=== PATIENT | female | born 1980 | race Caucasian/White ===

== ENCOUNTER 2016-06-29 18:45 | Emergency (ER) ==
[2016-06-29 18:45] VITALS: BMI 41.0
[2016-06-29 18:56] VITALS: BP 132/89; TEMP 98
== END 2016-06-29 19:30 | disposition left against medical advice (07) ==
LOC: ED 18:45
DX: R10.30 Lower abdominal pain, unspecified (principal); R39.9 Unspecified symptoms and signs involving the genitourinary system

== ENCOUNTER 2016-08-25 22:17 | Emergency (ER) ==
[2016-08-25 22:18] VITALS: BMI 41.0
[2016-08-25 22:27] VITALS: BP 134/79; TEMP 96.7
[2016-08-25] MEDS: TORADOL IM STA (22:38)
--- NOTE | 2016-08-25 22:39 | ED.PDOC ---
General ED Provider: Dr. JOSE JUAN BROWER Chief Complaint: Wrist Pain/Injury Stated Complaint: States that she pushed with her right hand to get up when she twited her right wrist about 6 hours ago. Took Ibupfuren but still has pain. Still has good range of motion. Time Seen by Physician: 22:37 Mode of Arrival: Walk-In Information Source: Patient Exam Limitations: No limitations Primary Care Provider: SHEA PA Nursing and Triage Documentation Reviewed and Agree: Yes Musculoskeletal Complaint Exam - Upper Extremity Complaint/Exam Location of Pain: Reports: Right, Wrist Mechanism of Injury: Reports: Trauma Onset/Duration: 6 hour Symptoms Are: Still present Timing: Constant Initial Severity: Severe Current Severity: Moderate Location: Reports: Diffuse Character: Reports: Aching, Throbbing Aggravating: Reports: Movement Alleviating: Reports: None Related History: Reports: Similar episode DVT Risk Factors: Reports: None Septic Arthritis Risk Factors: Reports: None Upper Extremity Findings: Present: Limited range of motion (at the wrist ) NV Bundle Intact Distal to Injury: No Compartment Syndrome Risk Factors: Present: Pain Differential Diagnoses: Strain, Sprain Review of Systems - Review Of Systems Constitutional: Reports: No symptoms Musculoskeletal: Reports: Joint pain All Other Systems: Reviewed and Negative Past Medical History - Past Medical History Previously Healthy: No Endocrine: Reports: DM 2 Cardiovascular: Reports: None Respiratory: Reports: None Hematological: Reports: None Gastrointestinal: Reports: Other (constipation) Genitourinary: Reports: None Neuro/Psych: Reports: Anxiety, Depression Musculoskeletal: Reports: Arthritis, Joint Pain (DJD-states unable to get neurology or neurosurgical referral "not bad enough"which conforms with old MR, states recommended heel surgery but has 4 small children and cannot take off) Cancer: Reports: None Last Menstrual Period: 07/20/16 Other Pertinent Past Medical History: Arthritis, heel spurs - Surgical History General Surgical History: Reports: Tubal ligation (TUBAL 2014), , Appendectomy - Family History Family History: Reports: None - Social History Smoking Status: Current every day smoker, Light tobacco smoker Hx Substance Use: No Alcohol Screening: None - Immunizations Tetanus Shot up to Date: Yes Physical Exam - Physical Exam Appearance: Obese Pain Distress: Moderate Neck: Supple Respiratory: Airway patent, Breath sounds clear, Breath sounds equal, Respirations nonlabored Cardiovascular: RRR, Pulses normal, No rub, No murmur Musculoskeletal: Limited ROM Skin: Warm, Dry, Normal color Neurological: Sensation intact, Motor intact, Reflexes intact, Cranial nerves intact, Alert, Oriented Psychiatric: Anxious Critical Care Note - Critical Care Note Total Time (mins): 0 Course - Course Orders, Labs, Meds: Orders Category Date Time Status ED SPLINT APPLICATION .ONCE EMERGENCY 08/25/16 22:23 Active Ketorolac Tromethamine [Toradol] MEDS 08/25/16 22:31 Discontinued 60 mg IM ONCE STA WRIST, RIGHT 3 VIEWS Stat RADS 08/25/16 22:23 Completed Medications Discontinued Medications Generic Name Dose Route Start Last Admin Trade Name Freq PRN Reason Stop Dose Admin Ketorolac Tromethamine 60 mg 08/25/16 22:31 08/25/16 22:38 Toradol IM 08/25/16 22:32 60 mg ONCE STA Administration Vital Signs: Temp Pulse Resp BP Pulse Ox 08/25/16 22:18 96.7 F L 101 H 20 134/79 98 Departure - Departure Time of Disposition: 22:39 Disposition: HOME SELF-CARE Discharge Problem: Wrist pain, right Instructions: Wrist Sprain (ED) Condition: Fair Pt referred to PMD for follow-up: Yes Additional Instructions: easley wrist brace for at lest 3 days Continue home Ibuprofen Allergies/Adverse Reactions: Allergies No Known Allergies Allergy (Verified 08/25/16 22:27) Home Medications: Ambulatory Orders Alprazolam [Xanax] 0.5 mg PO TID PRN 06/29/16 Buprenorphine [Butrans] 10 mg EXTERNAL WEEKLY 06/29/16 Lamotrigine [Lamictal] 25 mg PO QID 06/29/16 Disposition Discussed With: Patient, Family
--- NOTE | 2016-08-26 00:31 | DI ---
EXAM: Right wrist three views HISTORY: Injury and pain FINDINGS/IMPRESSION: No wilmer or articular abnormality. Negative exam.
== END 2016-08-25 22:50 | disposition home or self-care (01) ==
LOC: ED 22:17
DX: M25.531 Pain in right wrist (principal); F17.210 Nicotine dependence, cigarettes, uncomplicated; X50.1XXA Overexertion from prolonged static or awkward postures, initial encounter
CPT/HCPCS: 96372; 99282

== ENCOUNTER 2016-12-06 04:44 | Emergency (ER) ==
[2016-12-06 04:59] VITALS: BP 159/93; TEMP 98.5; BMI 42.5
[2016-12-06] MEDS ORDERED: TORADOL IM STA (06:12)
[2016-12-06] MEDS ORDERED: DECADRON 4 MG/ML SDV IM STA (06:12)
--- NOTE | 2016-12-06 06:15 | ED.PDOC ---
General ED Provider: Dr. NAGI PANTOJA Chief Complaint: Neck Pain Non-Injury Stated Complaint: Left side of the neck is hurting since 3 am, and also left shoulder pain, hurt to raise, seen spine surgeon, awaiting surgery. Time Seen by Physician: 06:13 Mode of Arrival: Walk-In Information Source: Patient Primary Care Provider: SHEA PA Nursing and Triage Documentation Reviewed and Agree: Yes Musculoskeletal Complaint Exam - Neck Pain Complaint/Exam Mechanism of Injury: Reports: No known trauma Symptoms Are: Still present Timing: Constant Episodes Lasting: Hours Initial Severity: Severe Current Severity: Moderate Location: Reports: Discrete Character: Reports: Aching, Throbbing Aggravating: Reports: Movement Alleviating: Reports: None Associated Signs and Symptoms: Denies: Swelling, Redness, Bruising, Fever, Nuchal rigidity, Weakness, Headache, Paresthesia Related History: Reports: Similar episode Meningitis Risk Factors: Reports: None Cervical Spine Injury Risk Factors: Reports: None Related Surgical History: Reports: None Carotid Bruit Present: No Pain on Passive Flexion: Yes Positive Kernig's Sign: No ROM Limited In: Present: Flexion, Extension Tenderness: Present: Paraspinal Radiates to: Present: Left arm Focal Weakness: Present: LUE Focal Sensory Loss: Reports: None Differential Diagnoses: Sprain, Other (cervical radiculopathy.) Review of Systems - Review Of Systems Constitutional: Reports: No symptoms Eyes: Reports: No symptoms Ears, Nose, Mouth, Throat: Reports: No symptoms Respiratory: Reports: No symptoms Cardiac: Reports: No symptoms GI: Reports: No symptoms : Reports: No symptoms Musculoskeletal: Reports: Joint pain, Muscle pain Skin: Reports: No symptoms Neurological: Reports: No symptoms Endocrine: Reports: No symptoms Hematologic/Lymphatic: Reports: No symptoms All Other Systems: Reviewed and Negative Past Medical History - Past Medical History Previously Healthy: No Endocrine: Reports: DM 2 Cardiovascular: Reports: None Respiratory: Reports: None Hematological: Reports: None Gastrointestinal: Reports: Other (constipation) Genitourinary: Reports: None Neuro/Psych: Reports: Anxiety, Depression Musculoskeletal: Reports: Arthritis, Joint Pain (DJD-states unable to get neurology or neurosurgical referral "not bad enough"which conforms with old MR, states recommended heel surgery but has 4 small children and cannot take off) Cancer: Reports: None Last Menstrual Period: now Other Pertinent Past Medical History: Arthritis, heel spurs - Surgical History General Surgical History: Reports: Tubal ligation (TUBAL 2014), , Appendectomy - Family History Family History: Reports: None - Social History Smoking Status: Current every day smoker Hx Substance Use: No Alcohol Screening: None - Immunizations Tetanus Shot up to Date: No (unsure) Physical Exam - Physical Exam Appearance: Well-appearing, Obese Pain Distress: Moderate Eyes: BALDEV, EOMI, Conjunctiva clear ENT: Ears normal, Nose normal, Oropharynx normal Respiratory: Airway patent, Breath sounds clear, Breath sounds equal, Respirations nonlabored Cardiovascular: RRR, Pulses normal, No rub, No murmur GI/: Soft, Nontender, No masses, Bowel sounds normal, No Organomegaly Musculoskeletal: Limited ROM, Limited strength Skin: Warm, Dry, Normal color Neurological: Sensation intact, Motor intact, Reflexes intact, Cranial nerves intact, Alert, Oriented Psychiatric: Affect appropriate, Mood appropriate Critical Care Note - Critical Care Note Total Time (mins): 0 Course - Course Orders, Labs, Meds: Orders Category Date Time Status Dexamethasone 4 mg/ml Inj [Decadron 4 mg/ml Sdv] MEDS 12/06/16 06:12 Stat 4 mg IM ONCE STA Ketorolac Tromethamine [Toradol] MEDS 12/06/16 06:12 Stat 60 mg IM ONCE STA Medications Generic Name Dose Route Start Last Admin Trade Name Freq PRN Reason Stop Dose Admin Dexamethasone Sodium Phosphate 4 mg 12/06/16 06:12 Decadron 4 Mg/Ml Sdv IM 12/06/16 06:13 ONCE STA Ketorolac Tromethamine 60 mg 12/06/16 06:12 Toradol IM 12/06/16 06:13 ONCE STA Vital Signs: Temp Pulse Resp BP Pulse Ox 12/06/16 04:49 98.5 F 87 20 159/93 H 98 Departure - Departure Time of Disposition: 06:17 Disposition: HOME SELF-CARE Discharge Problem: Cervical radiculopathy at C6 Instructions: Cervical Radiculopathy (ED) Condition: Stable Pt referred to PMD for follow-up: Yes Additional Instructions: Rest Hot pack, keep f/u with spine surgeon. Prescriptions: Hydrocodone/Acetaminophen [Rhodes 5-325 Tablet] 1 tab PO TID PRN #10 tablet PRN Reason: PAIN Allergies/Adverse Reactions: Allergies No Known Allergies Allergy (Verified 12/06/16 04:59) Home Medications: Ambulatory Orders Lamotrigine [Lamictal] 150 mg PO DAILY 06/29/16 Cyanocobalamin (Vitamin B-12) [Cyanocobalamin Injection] 1,000 mcg IJ MONTHLY Diazepam [Valium] 10 mg PO TID PRN 12/06/16 Gabapentin 300 mg PO TID 12/06/16 Hydrocodone/Acetaminophen [Rhodes 5-325 Tablet] 1 tab PO TID PRN #10 tablet 12/06 Liraglutide [Victoza 2-Lawson] 1.2 mg SQ DAILY 12/06/16 Disposition Discussed With: Patient, Family
== END 2016-12-06 06:45 | disposition home or self-care (01) ==
LOC: ED 04:44
DX: M54.12 Radiculopathy, cervical region (principal); F17.210 Nicotine dependence, cigarettes, uncomplicated
CPT/HCPCS: 96372; 99283